=== PATIENT | male | born 1995 | race Caucasian/White ===

== ENCOUNTER 2017-08-26 12:26 | Emergency (ER) | payer MEDICAID ==
[2017-08-26 12:47] VITALS: BP 146/92
== END 2017-08-26 14:13 | disposition home or self-care (01) ==
LOC: ED 12:26
DX: B34.9 Viral infection, unspecified (principal); H92.02 Otalgia, left ear
CPT/HCPCS: J7613; J7644

== ENCOUNTER 2020-04-18 16:24 | Emergency (ER) | payer MEDICAID ==
[~2020-04-18] VITALS: Ht 180.3 cm; Wt 90.7 kg
[2020-04-18 16:32] VITALS: Ht 180.3 cm; Wt 90.7 kg
[2020-04-18 17:10] VITALS: BP 125/80
== END 2020-04-18 17:10 | disposition home or self-care (01) ==
LOC: ED 16:24
DX: H66.92 Otitis media, unspecified, left ear (principal)